=== PATIENT | male | born 1970 | race Caucasian/White ===

== ENCOUNTER 2016-07-31 21:37 | Emergency (ER) | payer OTHER ==
[2016-07-31 22:11] VITALS: BP 126/82
[2016-07-31] MEDS ORDERED: Cephalexin CAP* 500 MG PO ONE ×2 (22:20)
[2016-07-31] MEDS ORDERED: Tetan/Diph/Pertus SYR(Tdap)* 0.5 ML SYR(BOOSTRIX) use SYR IM ONE (22:21)
--- NOTE | 2016-07-31 22:45 | UC ---
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 pain is mild but concerned about swelling - History Of Current Complaint Chief Complaint: UCTrauma Stated Complaint: SWOLLEN HAND Time Seen by Provider: 07/31/16 22:11 Hx Obtained From: Patient Onset/Duration: Gradual Onset, Lasting Hours Severity Initially: Mild Severity Currently: Mild Pain Intensity: 1 Pain Scale Used: 0-10 Numeric Character Of Pain: Dull Aggravating Factor(s): Movement Alleviating: Elevation Associated Signs And Symptoms: Positive: Swelling, Redness Related History: Dominant Hand Right - Allergies/Home Medications Allergies/Adverse Reactions: Allergies Allergy/AdvReac Type Severity Reaction Status Date / Time No Known Allergies Allergy Verified 07/31/16 21:59 Home Medications: Home Medications Ibuprofen [Advil] 800 mg PO 07/31/16 [History] PMH/Surg Hx/FS Hx/Imm Hx Previously Healthy: Yes - Surgical History Surgical History: None - Family History Known Family History: Positive: Hypertension - Social History Alcohol Use: Daily Alcohol Amount: few a night Substance Use Type: None Smoking Status (MU): Current Every Day Smoker - Immunization History Most Recent Tetanus Shot: Pt states unsure - wants update Review of Systems Constitutional: Negative Skin: Negative Eyes: Negative ENT: Negative Respiratory: Negative Cardiovascular: Negative Gastrointestinal: Negative Genitourinary: Negative Motor: Negative Neurovascular: Negative Musculoskeletal: Negative Neurological: Negative Psychological: Negative All Other Systems Reviewed And Are Negative: Yes Physical Exam Triage Information Reviewed: Yes Appearance: Well-Appearing, No Pain Distress, Well-Nourished Vital Signs: Initial Vital Signs Temp 98.5 F 07/31/16 22:01 Pulse 64 07/31/16 22:01 Resp 16 07/31/16 22:01 BP 126/82 07/31/16 22:01 Pulse Ox 100 07/31/16 22:01 Vital Signs Reviewed: Yes Eyes: Positive: Conjunctiva Clear ENT: Positive: Hearing grossly normal. Negative: Nasal congestion, Nasal drainage, Trismus, Muffled/hoarse voice Neck: Positive: Supple, Nontender, No Lymphadenopathy Respiratory: Positive: Lungs clear, Normal breath sounds, No respiratory distress Cardiovascular: Positive: RRR, No Murmur Musculoskeletal: Positive: Other: - see image Neurological Exam: Normal Neurological: Positive: Alert Psychological Exam: Normal Skin Exam: Normal Hand/Wrist Course/Dx - Differential Dx/Diagnosis Provider Diagnoses: left hand swelling and erthema....suspect local reaction to insect sting. r/o cellulitis Discharge - Discharge Plan Condition: Stable Disposition: HOME Prescriptions: Cephalexin CAP* [Keflex CAP*] 500 mg PO QID #28 cap Patient Education Materials: Cellulitis (ED), Insect Bite or Sting (ED) Referrals: No Primary Care Phys,NOPCP [Primary Care Provider] - Additional Instructions: I am unsure if this is due to a local reaction to insect sting versus infection elevate continue ibuprogen try to baby your hand at work recheck for new or worsening symptoms recheck in 3 days or so if not starting to improve Images Hands: 1 - swollen/minor skin breaks/??sting site/mild erthema/from/strength full 2 - dorsal hand edema. mild erythema
== END 2016-07-31 22:40 | disposition home or self-care (01) ==
LOC: UCEAST 21:37
DX: R22.32 Localized swelling, mass and lump, left upper limb (principal); L53.9 Erythematous condition, unspecified
CPT/HCPCS: 90471; 90715; 99202; A9270-GY; G0463